=== PATIENT | female | born 1945 | race African-American/Black ===

== ENCOUNTER 2017-05-10 07:49 | Outpatient (CLI) | payer MEDICARE ==
[2017-05-10] MEDS ORDERED: Iopamidol 370 76% 100 ML VIAL ONE (15:45)
== END 2017-05-10 07:50 | disposition home or self-care (01) ==
LOC: BICCT 07:49
PROVIDERS: ATTEND Internal Medicine Gastroenterology
DX: K52.9 Noninfective gastroenteritis and colitis, unspecified (principal)
CPT/HCPCS: 74177

== ENCOUNTER 2017-05-27 08:47 | Outpatient (CLI) | payer MEDICARE | END 2017-05-27 08:48 | disposition home or self-care (01) | LOC: BICMAMMO 08:47 | PROVIDERS: ATTEND Family Medicine | DX: Z12.31 Encounter for screening mammogram for malignant neoplasm of breast (principal) | CPT/HCPCS: 77063; 77067 ==

== ENCOUNTER 2017-10-14 09:20 | Inpatient (IN) | payer MEDICARE ==
[2017-10-14 10:22] LABS: CKMB 0.6 ng/mL (0-6.6); Troponin I Less than 0.010 ng/mL (< 0.028)
[2017-10-14 10:24] LABS: Hemoglobin 11.9 g/dL (12.0-16.0); Mean Corpuscular HGB CONC 34.1 g/dL (32.0-36.0); Mean Corpuscular Hemoglobin 32.3 pg (27.0-31.0); Mean Corpuscular Volume 94.8 fL (78.0-98.0); Mean Platelet Volume 7.6 fL (7.4-10.4); Platelet Count 221 thou/uL (130-400); RBC Distribution Width 12.6 % (11.5-14.5); Red Blood Cell (RBC) Count 3.67 mill/uL (4.20-5.40); White Blood Cell (WBC) Count 7.1 thou/uL (4.8-10.8)
[2017-10-14 10:25] LABS: ALT (SGPT) 15 U/L (8-55); AST (SGOT) 21 U/L (5-34); Alkaline Phosphatase 60 U/L (40-150); Anion Gap 12 mmol/L (10-20); BUN (Urea Nitrogen) 15 mg/dL (9.8-20.1); Bilirubin, Total 0.6 mg/dL (0.2-1.2); Calc. Creatinine Clearance 0 mL/min (70-130); Calcium 9.6 mg/dL (7.8-10.44); Carbon Dioxide 25 mmol/L (23-31); Chloride 107 mmol/L (98-107); Estimated GFR-MDRD 72; Glucose 101 mg/dL (83-110); Magnesium 2.2 mg/dL (1.6-2.6); Potassium 4.4 mmol/L (3.5-5.1); Sodium 140 mmol/L (136-145)
[2017-10-14 10:28] LABS: Bilirubin Negative (Negative); Blood, Urine Negative (Negative); Clarity Clear (Clear); Glucose, Urine (Dipstick) Negative (Negative); Leukocyte Negative (Negative); Nitrite Negative (Negative); Protein, Urine (Dipstick) Negative (Neg-Trace); Urobilinogen 0.2 mg/dL (0.2-1.0); pH, Urine 5.5 (5.0-9.0)
[2017-10-14 10:40] LABS: Band 3 % (5-11); Eosinophils 5 % (0-10); Lymphocytes 33 % (21-51); MDiff Complete? YES; Monocytes 12 % (0-10); Neutrophil 47 % (42-75); PLT Morphology Comment Appears Adequate; Polychromasia SLIGHT = 2-3 cells (100X) (0-2/hpf); Stomatocytes SLIGHT = 2-5 cells (100X) (0-1/hpf)
--- NOTE | 2017-10-14 10:58 | RAD ---
CHEST 1 VIEW: HISTORY: Weakness. Dyspnea. COMPARISON: 02/19/15. FINDINGS: Cardiac silhouette is magnified and enlarged. Pulmonary vasculature is slightly engorged. Mediastin um is midline with aortic calcification. No lobar consolidation or evidence of pneumothorax. IMPRESSION: Cardiomegaly with mild pulmonary vascular congestion. POS: [facility]
--- NOTE | 2017-10-14 11:06 | CT ---
NONCONTRAST CT HEAD: DATE: 10/14/17. HISTORY: Headache. One-week history of increasing weakness and lightheadedness, worse with standing. COMPARISON: 02/19/15. FINDINGS: Previously noted remote lacunar infarction predominantly involving the anterior limb left internal ca psule is again seen. Punctate focus of decreased attenuation in the right lentiform nucleus is likel y attributable to a tiny remote lacunar infarction as well. There is no evidence of an acute cortica l infarction, hemorrhage, mass effect, or midline shift. The ventricular system is normal in size, s hape, and position. No other interval change. IMPRESSION: 1. No acute intracranial abnormality is demonstrated. 2. Remote lacunar infarctions in each basal ganglia. POS: [facility]
[2017-10-14 13:35] LABS: Troponin I Less than 0.010 ng/mL (< 0.028)
[2017-10-14 13:51] VITALS: BMI 33.8
[2017-10-14] MEDS ORDERED: cloNIDine 0.1 MG TAB PO PRN (16:30)
[2017-10-14] MEDS ORDERED: hydrALAZINE 20 MG/ML VIAL SLOW IVP PRN (16:30)
[2017-10-14] MEDS ORDERED: Ondansetron ODT 4 MG TAB PO PRN (16:30)
[2017-10-14] MEDS ORDERED: Ondansetron HCl/PF 4 MG/2 ML Vial IVP PRN (16:30)
[2017-10-14 16:53] LABS: Troponin I Less than 0.010 ng/mL (< 0.028)
[2017-10-14] MEDS: Acetaminophen 500 MG TAB PO PRN (18:39)
[2017-10-14] MEDS: Sodium Chloride 0.9% 1,000 ML IV SCH (18:40)
--- NOTE | 2017-10-14 18:52 | ULT ---
ULTRASOUND DOPPLER DUPLEX CAROTID: 10/14/17 HISTORY: 71-year-old female with dizziness. TECHNIQUE: Tobar scale, color flow, and spectral analysis, of major arteries of the neck. FINDINGS: There is mild tortuosity and intimal thickening of the bilateral common carotid arteries and internal carotid arteries. Tiny focal calcified plaque is present at the right carotid bulb, at the right int ernal carotid artery origin. No plaque is visualized in the left carotid bulb. Highest peak systolic velocities in the internal carotid arteries are 80 cm/s on the right, and also 80 cm/s on the left. ICA/CCA ratios are 0.9 on the right and 1.0 on the left. Vertebral artery flow is antegrade bilaterally. IMPRESSION: 1. Minimal atherosclerotic plaque at the right carotid bulb. 2. Otherwise negative. 3. No hemodynamically significant stenosis. POS: [facility]
[2017-10-14] MEDS: Famotidine 20 MG TAB PO SCH (20:36)
[2017-10-14] MEDS: Lisinopril 20 MG TAB PO SCH (20:36)
[2017-10-14] MEDS: Amlodipine 10 MG TAB PO SCH (20:37)
[2017-10-14] MEDS: Atorvastatin Calcium 10 MG TAB PO SCH (20:37)
[2017-10-14] MEDS: hydrALAZINE 25 MG TAB PO SCH (20:37)
[2017-10-14] MEDS: Ipratropium Bromide 0.03% Nasal Inhaler 30 ml Bottle EA NARE SCH (20:37)
--- NOTE | 2017-10-15 00:08 | HP ---
DATE OF ADMISSION: 10/14/2017 PRIMARY CARE PHYSICIAN: Nina Bell M.D. CHIEF COMPLAINT: Lightheadedness and dizziness. HISTORY OF PRESENT ILLNESS: This is a 71-year-old -[place] female who presents to [facility] Emergency Department with approximately 48-hour history of increasing weaknes s, lightheadedness, and dizziness. Patient states that approximately 48 hours prior to this evaluati on, she was walking through a parking lot looking up at her granddaughter when she misstepped hitting a speed bump with her foot, falling to the ground, striking her right knee. Patient denied loss of consciousness or blacking out. Patient noted bruising of the knee and scraped, but otherwise felt ok ay. The patient states she has felt generally weak over the last 48 hours with increasing need for s leep and some dizziness. Patient states she got out of bed rapidly to go to the restroom when she no ticed the dizziness and lightheadedness. Patient denied any change of vision, fever, chills, chest p ressure, shortness of breath, travel history or unilateral weakness. Patient denied any long distanc e travel, increased swelling of the lower extremities other than bruising of the right knee. Patient admits to some nonspecific headache in the occipital region with some radiation to the eyebrows. Pa tient also with some increased stress, worrying about her family members, and social situation. Micaela ent denied any specific change to her medication regimen, recent vaccinations, fever, chills, or sick contacts. In the emergency room, patient underwent general evaluation including CT of the brain jesse wing remote lacunar infarcts in each basil ganglia. No acute process was identified. Metabolic scre ening was essentially unremarkable and patient was transferred to the observation unit for further ev aluation. Patient was noted with sinus bradycardia; however, this is a chronic condition according t o the patient. PAST MEDICAL HISTORY: 1. Sinus bradycardia. 2. Hypertension. 3. History of remote lacunar infarcts in the basal ganglia. 4. Seasonal allergies. 5. Anxiety disorder. 6. History of hypertensive crisis in 2014. 7. History of hepatitis C, status post interferon therapy. 8. Obesity. 9. Hyperlipidemia. PAST SURGICAL HISTORY: 1. Status post cholecystectomy. 2. Status post tonsillectomy. CURRENT MEDICATIONS: 1. Amlodipine 10 mg one tab p.o. daily. 2. Enteric-coated aspirin 81 mg one tab p.o. daily. 3. Lipitor 10 mg p.o. daily. 4. Vitamin B complex one tablet p.o. daily. 5. Coreg 12.5 mg p.o. b.i.d. 6. Zyrtec 10 mg p.o. daily. 7. Vitamin D3 of 1000 units p.o. daily. 8. Lasix 40 mg p.o. daily. 9. Apresoline 50 mg p.o. b.i.d. 10. Lisinopril 20 mg p.o. b.i.d. 11. Lorazepam 0.5 mg to 1 mg p.o. q.4 hours p.r.n. anxiety. 12. Multivitamin one tab p.o. daily. 13. [place] 3 fatty acids one tablet p.o. daily. 14. Omeprazole 20 mg one tab p.o. daily. ALLERGIES: CODEINE. FAMILY HISTORY: Positive for hypertension. SOCIAL HISTORY: Patient resides in [place], [place]. Retired. Accompanied by her son and fam elisa members in the hospital. Functional of all activities of daily living. No current alcohol, toba insurance account assistant, or illicit drug use. REVIEW OF SYSTEMS: The following complete review of systems was otherwise negative, except as stated per HPI: Constitutional: Weight loss or gain, ability to conduct usual activities. Skin: Rash, i tching. Eyes: Double vision, pain. ENT/Mouth: Nose bleeding, neck stiffness, pain, tenderness. C ardiovascular: Palpitations, dyspnea on exertion, orthopnea. Respiratory: Shortness of breath, whe ezing, cough, hemoptysis, fever, or night sweats. Gastrointestinal: Poor appetite, abdominal pain, heartburn, nausea, vomiting, constipation, or diarrhea. Genitourinary: Urgency, frequency, dysuria, nocturia. Musculoskeletal: Pain, swelling. Neurologic/Psychiatric: Anxiety, depression. Allergy /Immunologic: Skin rash, bleeding tendency. PHYSICAL EXAMINATION: VITAL SIGNS: Currently, blood pressure 173/75, pulse 49, respiratory rate 16, temperature 97.8 degre es Fahrenheit, O2 saturation 95% on room air. GENERAL APPEARANCE: This is a 71-year-old -[place] female, alert and oriented x3, pleasant, conversant, in no acute distress. HEENT: Pupils are equal, round, and reactive to light and accommodation. Extraocular muscles are in tact. No scleral icterus, no conjunctival injection. No nystagmus noted. Nares patent. OP is maty r. Teeth in good repair. NECK: Supple, no cervical adenopathy, no thyromegaly, no carotid bruits, no JVD appreciated. Cervic al spine with full active and passive range of motion. No meningeal signs appreciated. CHEST: Lungs are clear to auscultation bilaterally. CARDIOVASCULAR: S1, S2 without noted murmur, rub, or gallop. ABDOMEN: Obese, soft, nontender, nondistended. Bowel sounds are positive in all four quadrants. Th ere is no hepatosplenomegaly, no abdominal bruits, no rebound or guarding appreciated. EXTREMITIES: Warm and dry with fair turgor. No clubbing, cyanosis, or asymmetric edema. Pulses pal pable distally at the dorsalis pedis, posterior tibial, and popliteal arteries bilaterally. Capillar y refill less than 2 seconds. NEUROLOGIC: Cranial nerves II-XII are grossly intact. No nystagmus noted. No focal findings. SKIN: Right patellar region with mild erythema and abrasion approximately 2 cm in diameter. PERTINENT LABORATORY DATA AND X-RAY FINDINGS: Complete metabolic profile within normal limits. BNP 142, previously noted 126 on 02/19/2015. Troponin I negative x2. CBC showed a white blood cell coun t of 7.1, hemoglobin 12, hematocrit 35, platelet count 221 with 47% neutrophils. Urinalysis negative on 10/14/2017. Portable chest x-ray dated 10/14/2017 showed cardiomegaly with vascular prominence. CT of the brain without contrast dated 10/14/2017 showed no acute intracranial process. Remote lacu nell infarcts in each basil ganglia. EKG dated 10/14/2017 by my interpretation shows sinus bradycardi a with heart rates in the 40s-50s. Attenuated R waves noted in the precordial leads. Normal axis. No acute ST-T wave changes appreciated. ASSESSMENT AND PLAN: 1. Vertigo. Patient will be observed on the telemetry unit. Exact etiology unclear. We will initi ate intravenous fluids with normal saline at 75 mL per hour. Check orthostatic vital signs q.4 x2. Continue telemetry monitoring for potential cardiac component. Continue serial blood pressure monito ring. Consider trial of meclizine. Check carotid sonogram to rule out focal stenosis. 2. Sinus bradycardia. Review of the electronic medical record reveals history of sinus bradycardia greater than 3 years prior to this evaluation. We will hold Coreg. Continue amlodipine. We will co ntinue telemetry monitoring and correlate with potential symptoms. 3. Status post mechanical fall. Stable currently. Obtain PT evaluation for general functional asse ssment. 4. Hypertension. Resume home antihypertensive regimen and hold Coreg x24 hours. Hydralazine and cl onidine p.r.n. systolic greater than or equal to 170s. 5. History of lacunar cerebrovascular accident in the thalamic region. No current evidence to sugge st an acute central neurologic process. Continue supportive management. Aspirin 81 mg daily. Talisha nue Lipitor 10 mg p.o. daily. 6. Prophylaxis. Sequential compression devices while in bed. Pepcid 20 mg p.o. b.i.d. PT evaluati on for general functional assessment. 7. Code status is FULL. Surrogate medical decision maker is patient's son.
[2017-10-15 05:14] LABS: Anion Gap 11 mmol/L (10-20); BUN (Urea Nitrogen) 15 mg/dL (9.8-20.1); Calc. Creatinine Clearance 89 mL/min (70-130); Calcium 9.4 mg/dL (7.8-10.44); Carbon Dioxide 26 mmol/L (23-31); Chloride 106 mmol/L (98-107); Estimated GFR-MDRD 78; Glucose 110 mg/dL (83-110); Sodium 139 mmol/L (136-145)
[2017-10-15] MEDS: Sodium Chloride 0.9% 1,000 ML IV SCH (05:39)
[2017-10-15 06:48] LABS: Hemoglobin 11.6 g/dL (12.0-16.0); Mean Corpuscular Hemoglobin 32.8 pg (27.0-31.0); Mean Corpuscular Volume 99.4 fL (78.0-98.0); Red Blood Cell (RBC) Count 3.54 mill/uL (4.20-5.40); White Blood Cell (WBC) Count 7.2 thou/uL (4.8-10.8)
[2017-10-15 06:49] LABS: Eosinophils 4 % (0-10); Lymphocytes 41 % (21-51); MDiff Complete? YES; Mean Platelet Volume 7.5 fL (7.4-10.4); Monocytes 4 % (0-10); Neutrophil 51 % (42-75); Platelet Count 250 thou/uL (130-400); RBC Distribution Width 13.1 % (11.5-14.5)
[2017-10-15] MEDS: Ipratropium Bromide 0.03% Nasal Inhaler 30 ml Bottle EA NARE SCH ×2 (09:00→21:17)
[2017-10-15] MEDS: Famotidine 20 MG TAB PO SCH ×2 (09:01→21:17)
[2017-10-15] MEDS: Stress 600 With Zinc 1 TAB PO SCH (09:03)
[2017-10-15] MEDS: Acetaminophen 500 MG TAB PO PRN ×2 (09:03→19:31)
[2017-10-15] MEDS: Lisinopril 20 MG TAB PO SCH ×2 (09:04→21:17)
[2017-10-15] MEDS: hydrALAZINE 25 MG TAB PO SCH ×2 (09:04→21:17)
[2017-10-15] MEDS: Loratadine 10 MG TAB PO SCH (09:05)
[2017-10-15] MEDS: Furosemide 40 MG TAB PO SCH (09:05)
[2017-10-15] MEDS: Fish Oil 1,000 MG CAP PO SCH (09:06)
[2017-10-15] MEDS ORDERED: Meclizine HCl 25 MG TAB PO SCH (15:30)
--- NOTE | 2017-10-15 16:06 | PDOC.PN ---
- Subjective Encounter Start Date: 10/15/17 Encounter Start Time: 14:15 Subjective: f/u for vertigo/dizziness. Still with some dizziness when moving around. No -: N/V. No CP, SOB. - Objective MAR Reviewed: Yes Vital Signs & Weight: Vital Signs (12 hours) Temp Pulse Resp BP Pulse Ox 10/15/17 15:19 97.6 F 51 L 22 H 177/81 H 95 I&O: 10/14/17 10/15/17 10/16/17 06:59 06:59 06:59 Intake Total 750 Balance 750 Result Diagrams: 10/15/17 04:36 10/15/17 04:36 Radiology Reviewed by me: Yes (CT Brain - no acute process) EKG Reviewed by me: Yes (Tele - Sinus lion in 50's) Phys Exam - Physical Examination Constitutional: NAD HEENT: PERRLA, sclera anicteric, oral pharynx no lesions Neck: no nodes, no JVD, supple, full ROM Respiratory: no wheezing, no rales, no rhonchi, clear to auscultation bilateral S1, S2 Cardiovascular: RRR, no significant murmur, no rub, gallop Gastrointestinal: soft, non-tender, no distention, positive bowel sounds Musculoskeletal: no edema, pulses present Neurological: non-focal, normal sensation, moves all 4 limbs Psychiatric: normal affect, A&O x 3 Skin: no rash, normal turgor, cap refill <2 seconds Dx/Plan (1) Vertigo Code(s): R42 - DIZZINESS AND GIDDINESS Status: Acute Comment: Trial Meclizine, ? relationship with sinus bradycardia, continue supportive mgmt, fall risk precautions (2) Sinus bradycardia Code(s): R00.1 - BRADYCARDIA, UNSPECIFIED Status: Chronic Comment: ? symptomatic bradycardia, hold Coreg, likely will need outpt event monitor (3) Fall Code(s): W19.XXXA - UNSPECIFIED FALL, INITIAL ENCOUNTER Status: Acute Comment: Mechanical fall after tripping, no LOC or head injury (4) Hypertension Code(s): I10 - ESSENTIAL (PRIMARY) HYPERTENSION Status: Chronic Qualifiers: Hypertension type: essential hypertension Qualified Code(s): I10 - Essential (primary) hypertension Comment: Labile, continue serial BP monitoring, Coreg held due to concern for symptomatic bradycardia - Plan plan discussed w/ family, PT/OT, out of bed/ambulate, DVT proph w/SCDs Stable overall -: Start Meclizine 25mg po q8h -: Hold Coreg -: Saline lock IVF's -: OOB/ambulate * Consult Cardiology regarding bradycardia * Likely home in 24h with event monitor
[2017-10-15] MEDS: Amlodipine 10 MG TAB PO SCH (21:16)
[2017-10-15] MEDS: Atorvastatin Calcium 10 MG TAB PO SCH (21:17)
[2017-10-15] MEDS: Meclizine HCl 25 MG TAB PO SCH (21:18)
[2017-10-16] MEDS: Meclizine HCl 25 MG TAB PO SCH (06:05)
[2017-10-16] MEDS: Famotidine 20 MG TAB PO SCH (08:16)
[2017-10-16] MEDS: Lisinopril 20 MG TAB PO SCH (08:16)
[2017-10-16] MEDS: Loratadine 10 MG TAB PO SCH (08:17)
[2017-10-16] MEDS: Stress 600 With Zinc 1 TAB PO SCH (08:17)
[2017-10-16] MEDS: hydrALAZINE 25 MG TAB PO SCH (08:17)
[2017-10-16] MEDS: Furosemide 40 MG TAB PO SCH (08:17)
[2017-10-16] MEDS: Fish Oil 1,000 MG CAP PO SCH (08:17)
[2017-10-16] MEDS: Ipratropium Bromide 0.03% Nasal Inhaler 30 ml Bottle EA NARE SCH (08:18)
[2017-10-16 08:19] VITALS: BP 156/68; TEMP 98.3
--- NOTE | 2017-10-16 10:13 | CON ---
DATE OF CONSULTATION: 10/15/2017 REASON FOR CONSULTATION: Bradycardia. REFERRING PROVIDER: Dr. Lamb. HISTORY OF PRESENT ILLNESS: Ms. Antoine is a very pleasant 71-year-old woman who was previously seen a nd evaluated by Dr. Rabia Rush. She recently presented with dizziness and lightheadedness. This occurred while getting up from a lying position. No chest pain or pressure noted. No shortness of b reath. No syncope or presyncope. She states she has been on Coreg at 12.5 mg 1 p.o. b.i.d. over the last several years. No other recent changes in medications. Heart rate while being evaluated was i n the upper 40s-50s. No fever, chills or other associated symptoms present. PAST MEDICAL HISTORY: Previous stroke, hypertension, hepatitis C, obesity, hyperlipidemia. PAST SURGICAL HISTORY: Cholecystectomy, tonsillectomy. HOME MEDICATIONS: Include aspirin, amlodipine, Lipitor, vitamin B, Coreg 12.5 b.i.d., Zyrtec, vitami n D3, Lasix, alprazolam, lisinopril, multivitamin, omega 3 fatty acid, omeprazole. ALLERGIES: CODEINE. SOCIAL HISTORY: No current tobacco or alcohol use. REVIEW OF SYSTEMS: Ten point review of systems reviewed and as above, otherwise negative. PHYSICAL EXAMINATION: GENERAL: Patient is a pleasant female who is in no acute distress. The patient appears her stated a ge. VITAL SIGNS: Blood pressure 150/60, pulse upper 40s to 50s, respirations 20. NEUROLOGIC: The patient is alert and oriented times 3 with no focal neurologic deficits. HEENT: Sclerae without icterus. Mouth has moist mucous membranes with normal pallor. NECK: No JVD. Carotid upstroke brisk. No bruits bilaterally. LUNGS: Clear to auscultation with unlabored respirations. BACK: No scoliosis or kyphosis. CARDIAC: Regular rate and rhythm with normal S1 and S2. No S3 or S4 noted. No significant rubs, mu rmurs, thrills, or gallops noted throughout the precordium. PMI is not displaced. There is no javier ternal heave. ABDOMEN: Soft, nontender, nondistended. No peritoneal signs present. No hepatosplenomegaly. No ab normal striae. EXTREMITIES: 2+ femoral and 2+ dorsalis pedis pulses. No cyanosis, clubbing, or edema. SKIN: No gross abnormalities. PERTINENT LABORATORY DATA AND IMAGING: Hemoglobin 11.6, creatinine 0.86. Troponin negative. EKG sh ows sinus bradycardia. IMPRESSION: 1. Dizziness. 2. Hypertension. RECOMMENDATIONS: Symptoms likely related to beta ryan therapy. We would recommend stopping her b eta ryan therapy. She states her symptoms have improved. From my standpoint, could likely be dis continued today. She states she has no social support at home and lives alone. Therefore, we will k eep overnight and plan on sending her home in a.m. We will recommend a 3-week event recorder and ree chavez follow up with Dr. Rush in the next 2-3 weeks.
--- NOTE | 2017-10-16 20:39 | DIS ---
DATE OF ADMISSION: 10/14/2017 DATE OF DISCHARGE: 10/16/2017 DISCHARGE DIAGNOSES: 1. Symptomatic bradycardia secondary to Coreg. 2. Vertigo secondary to #1, improved. 3. Hypertension, stable. 4. Status post mechanical fall. 5. Hyperlipidemia. CONSULTATION: Dr. Mahan with Cardiology Service. PERTINENT LABORATORY AND X-RAY FINDINGS: Complete metabolic profile within normal limits. Troponin I negative x3. BNP 142. CBC showed a hemoglobin ranged between 11.6-11.9, hematocrit 35, MCV ranged between 95-99. Urinalysis negative. Portable chest x-ray dated 10/14/2017 showed cardiomegaly with mild vascular prominence. CT of the brain without contrast dated 10/14/2017 showed no acute intracr anial process. Remote lacunar infarcts noted in each basal ganglia. Carotid Doppler study dated showed minimal atherosclerotic plaque at the right carotid bulb. No hemodynamically signific ant stenosis. HOSPITAL COURSE: The patient was admitted to the telemetry unit after initially presenting with pers istent dizziness, lightheadedness, and vertiginous symptoms. The patient underwent extensive evaluat ion including neuro imaging showing evidence of old lacunar infarcts in the bilateral basal ganglia. The patient also underwent metabolic screening which was essentially unremarkable. Telemetry monito ring did show evidence of bradycardia with heart rates in the 40s to 50s concerning for symptomatic b radycardia. The patient was held on her outpatient regimen of Coreg and evaluated by the Cardiology Service. Due to patient's symptomatology, the patient was recommended for a cardiac event monitor fo r approximately 3 weeks after discharge. Current recommendations are to discontinue Coreg and contin ue cardiac event monitor with outpatient followup with Cardiology Service. Overall, the patient did remain clinically stable during the hospital course, tolerating regular oral intake, ambulating witho ut assistance or difficulty and voiding appropriately. Pelvic exam of the patient at the time of dis charge and discussed followup instructions, at which point the patient verbalized understanding and a greement. Overall, the patient clinically stable and ready for discharge on 10/16/2017. DISCHARGE MEDICATIONS: 1. Norvasc 10 mg 1 tab p.o. at bedtime. 2. Enteric-coated aspirin 81 mg p.o. daily. 3. Lipitor 10 mg p.o. at bedtime. 4. Vitamin B complex 1 tablet p.o. daily. 5. Zyrtec 10 mg p.o. daily. 6. Vitamin D3 1000 units p.o. daily. 7. Lasix 40 mg p.o. q.a.m. 8. Hydralazine increased to 75 mg p.o. b.i.d. 9. Ipratropium bromide 1 spray nasally b.i.d. 10. Lisinopril 20 mg p.o. b.i.d. 11. Lorazepam 0.5 mg half a tab to 1 tab p.o. q.4 hours p.r.n. 12. [employer] tab 1 tablet p.o. daily. 13. [place]-3 fatty acids 1 tablet p.o. daily. 14. Omeprazole 20 mg p.o. daily. FOLLOWUP: The patient may follow up with her primary care provider, Dr. Nina Bell, within 7 days of discharge. The patient will follow up with Dr. Rabia Rush 2-3 weeks after discharge to re view cardiac event monitor. CONDITION ON DISCHARGE: Stable. ACTIVITY: ad giles. SPECIAL INSTRUCTIONS: Cardiac event Monitor will be mailed to the patient's home within 3-4 days aft er discharge. DIET: Heart healthy. CODE STATUS: FULL. DISPOSITION: Home on 10/16/2017.
== END 2017-10-16 12:57 | disposition home or self-care (01) | DRG 149 ==
LOC: SCSER 09:20 → 2SW 11:11 → OBSVTOIN 10-15 15:06
PROVIDERS: ADMIT Family Medicine; ATTEND Family Medicine
DX: R42 Dizziness and giddiness (principal); R00.1 Bradycardia, unspecified; T44.7X5A Adverse effect of beta-adrenoreceptor antagonists, initial encounter; I10 Essential (primary) hypertension; E78.5 Hyperlipidemia, unspecified; J30.2 Other seasonal allergic rhinitis; F41.9 Anxiety disorder, unspecified; E66.9 Obesity, unspecified; Z68.33 Body mass index [BMI] 33.0-33.9, adult; Z86.73 Personal history of transient ischemic attack (TIA), and cerebral infarction without residual deficits; Z86.19 Personal history of other infectious and parasitic diseases; W19.XXXA Unspecified fall, initial encounter; Y92.009 Unspecified place in unspecified non-institutional (private) residence as the place of occurrence of the external cause
CPT/HCPCS: 36415; 70450; 71045; 80048; 80053; 81003; 82553; 83735; 83880; 84484; 85007; 85025; 85027; 93005; 93880; G8978-GP-CL; G8979-GP-CL; G8980-GP-CL; Q0162

== ENCOUNTER 2017-11-10 16:04 | Inpatient (IN) | payer MEDICARE ==
[2017-11-10] MEDS ORDERED: Nitroglycerin 2% Ointment 1 INCH/1 GM Packet ONE (16:19)
[2017-11-10] MEDS ORDERED: Lorazepam 2 MG/ML VIAL ONE (16:44)
[2017-11-10 16:47] LABS: Band 1 % (5-11); Eosinophils 2 % (0-10); Hemoglobin 11.6 g/dL (12.0-16.0); Lymphocytes 18 % (21-51); MDiff Complete? YES; Mean Corpuscular HGB CONC 32.8 g/dL (32.0-36.0); Mean Corpuscular Hemoglobin 31.1 pg (27.0-31.0); Mean Platelet Volume 7.4 fL (7.4-10.4); Monocytes 14 % (0-10); Neutrophil 64 % (42-75); PLT Morphology Comment Appears Adequate; Platelet Count 277 thou/uL (130-400); RBC Distribution Width 12.7 % (11.5-14.5); Red Blood Cell (RBC) Count 3.74 mill/uL (4.20-5.40); White Blood Cell (WBC) Count 11.4 thou/uL (4.8-10.8)
[2017-11-10 16:49] LABS: ALT (SGPT) 16 U/L (8-55); AST (SGOT) 22 U/L (5-34); Albumin 4.2 g/dL (3.4-4.8); Alkaline Phosphatase 63 U/L (40-150); Anion Gap 15 mmol/L (10-20); BUN (Urea Nitrogen) 17 mg/dL (9.8-20.1); Bilirubin, Total 0.3 mg/dL (0.2-1.2); Calc. Creatinine Clearance 0 mL/min (70-130); Calcium 9.8 mg/dL (7.8-10.44); Carbon Dioxide 24 mmol/L (23-31); Chloride 105 mmol/L (98-107); Estimated GFR-MDRD 60; Globulin 4.2 g/dL (2.4-3.5); Glucose 113 mg/dL (83-110); Protein, Total 8.4 g/dL (6.0-8.3); Sodium 140 mmol/L (136-145)
[2017-11-10 16:52] LABS: CKMB 0.7 ng/mL (0-6.6); Troponin I 0.016 ng/mL (< 0.028)
--- NOTE | 2017-11-10 16:57 | RAD ---
AP VIEW CHEST 11/10/17 HISTORY: Chest pain. AP view chest obtained on 11/10/17. COMPARISON: Comparison made to previous exam of 10/14/17. AP view chest demonstrates mild cardiomegaly. Pulmonary vascular congestion seen. No evidence of effu sions, pneumonia, or pneumothorax seen. IMPRESSION: Cardiomegaly and pulmonary vascular congestion. POS: [facility]
[2017-11-10] MEDS ORDERED: Morphine 4 MG/ML Carpuject ONE (17:09)
[2017-11-10] MEDS ORDERED: Fentanyl 100 MCG/2 ML VIAL ONE ×2 (17:14→23:29)
[2017-11-10] MEDS ORDERED: Fentanyl 100 MCG/2 ML VIAL SLOW IVP PRN ×2 (18:40→22:28)
[2017-11-10] MEDS: Nitroglycerin 0.4 MG TAB (25 Tab Bottle) ONE ×2 (18:48→18:58)
[2017-11-10 19:06] VITALS: BMI 34.7
[2017-11-10 20:24] LABS: Troponin I Less than 0.010 ng/mL (< 0.028)
[2017-11-10 22:47] LABS: Troponin I Less than 0.010 ng/mL (< 0.028)
[2017-11-10] MEDS ORDERED: Nitroglycerin 0.4 MG TAB (25 Tab Bottle) SL PRN (22:49)
[2017-11-10] MEDS ORDERED: Lidocaine 1% (PF) 30 ML VIAL ONE (23:06)
[2017-11-10] MEDS ORDERED: Midazolam HCl 2 mg/2 ml Vial ONE (23:29)
--- NOTE | 2017-11-10 23:41 | CON ---
DATE OF CONSULTATION: 11/10/2017 REASON FOR CONSULTATION: Chest pain. PRIMARY GAUGE AND WEIGH MACHINE OPERATOR: Dr. Rabia Rush. HISTORY OF PRESENT ILLNESS: Ms. Antoine is a pleasant 72-year-old -[place] female who comes to the hospital for chest pain. She had 2-1/2 hours of left shoulder pain radiated to the left neck an d left upper chest, accompanied with mild shortness of breath. Denies any nausea, vomiting. She rec ently was in the hospital about a month ago for bradycardia. She was scheduled to see Dr. Rush in the office next week for stress and then an echo. Currently, she was admitted to the [facility] as her troponin was unremarkable x3. She had a normal EKG. She continued to have chest pain and a repeat EKG showed inferior ST elevations, so Cardiology is being consulted emergently for this. On my evaluation, Mrs. Antoine continues to have chest pain, so the electrical laboratory technician team has been called in for f urther evaluation. PAST MEDICAL HISTORY: 1. Hepatitis C. 2. History of mild coronary artery disease and a heart catheterization [place] [address] Rush. She h ad 10-20% RCA lesion. 3. Hypertension. 4. History of lacunar infarcts in the basal ganglia. 5. Seasonal allergies. 6. Anxiety disorder. 7. Obesity. 8. Hyperlipidemia. PAST SURGICAL HISTORY: 1. Cholecystectomy. 2. Tonsillectomy. 3. Heart catheterization as above. OUTPATIENT MEDICATIONS: 1. Amlodipine 10 mg a day. 2. Aspirin 81 a day. 3. Lipitor 10 a day. 4. Vitamin B. 5. Coreg. 6. Zyrtec. 7. Vitamin D. 8. Lasix. 9. Apresoline 50 mg p.o. b.i.d. 10. Lisinopril 20 mg p.o. b.i.d. 11. Lorazepam. 12. Multivitamin. 13. [place] 3 fish oil. 14. Omeprazole 20 mg at bedtime. ALLERGIES: CODEINE. FAMILY HISTORY: Hypertension, heart disease. SOCIAL HISTORY: No alcohol, tobacco or drugs. REVIEW OF SYSTEMS: A 12-point review of systems was done and is all negative unless stated in the hi story of present illness. PHYSICAL EXAMINATION: VITAL SIGNS: Temperature 99.3, pulse 75, respiratory rate 24, satting 96% on 3 liters nasal cannula, blood pressure 159/74. GENERAL: Awake, alert, oriented x3, in no distress. HEENT: Normocephalic, atraumatic. NECK: Supple. LUNGS: Clear. CARDIOVASCULAR: S1, S2, no S3, S4, no murmurs. ABDOMEN: Soft. Positive bowel sounds. EXTREMITIES: Trace edema. SKIN: Warm and dry. LABORATORY WORK: Reviewed. Troponin is negative x3, last one was drawn at 2200 hours. Her pain sta rted at 2245 hours. Creatinine is normal. GFR of 60. CBC with a mildly elevated white count of 11. 4, hemoglobin 11.6, platelet count 277. EKG was reviewed on admission, normal sinus rhythm, no ischemic changes. A repeat EKG while she is h aving pain shows inferior ST elevations. ASSESSMENT AND PLAN: Inferior ST elevation myocardial infarction. We will take her to the catheteri zation lab for further evaluation. Further recommendations per results of coronary angiogram. I spo ke with her briefly about the risks and benefits of the procedure, risks included, but not limited to stroke, [place], , bleeding and need for blood transfusion, limb loss, organ loss, renal dysfunction from contrast administration and allergic reactions. The patient verbalized understanding of this a nd agrees to proceed. Whole family is in the room at the time of my evaluation. We will follow.
[2017-11-10] MEDS ORDERED: Sodium Chloride 0.9% 1,000 ML IV SCH (23:45)
[2017-11-10] MEDS ORDERED: Sodium Chloride 0.9% 200 ML IV PRN (23:59)
[2017-11-10] MEDS ORDERED: Ketorolac Tromethamine 30 MG/ML VIAL IVP SCH (23:59)
[2017-11-11] MEDS ORDERED: Ondansetron HCl/PF 4 MG/2 ML Vial IVP PRN (03:33)
[2017-11-11] MEDS ORDERED: Ketorolac Tromethamine 30 MG/ML VIAL IVP PRN (06:00)
[2017-11-11 06:49] LABS: Cardiac Risk 2.2 (Less than 4.5)
[2017-11-11] MEDS ORDERED: Ondansetron ODT 4 MG TAB PO PRN (07:05)
[2017-11-11] MEDS ORDERED: Bisacodyl 10 MG SUPP PR PRN (07:05)
[2017-11-11] MEDS ORDERED: Diabetic Tussin 200 MG/10 ML UDCUP PO PRN (07:05)
[2017-11-11] MEDS ORDERED: Lorazepam 1 MG TAB PO PRN (07:05)
[2017-11-11] MEDS ORDERED: Labetalol HCl 100 MG/20 ML VIAL SLOW IVP PRN (07:05)
[2017-11-11] MEDS ORDERED: Sodium Chloride 0.65% Nasal 44 ML BOT EA NARE PRN (07:05)
[2017-11-11] MEDS ORDERED: Loperamide HCl 2 MG CAP PO PRN (07:05)
[2017-11-11] MEDS ORDERED: Chloraseptic Spray 180 ml Bottle PO PRN (07:05)
[2017-11-11] MEDS ORDERED: hydrALAZINE 20 MG/ML VIAL SLOW IVP PRN (07:05)
[2017-11-11] MEDS ORDERED: Eucerin (Mineral Oil/Petrolatum,White) 30 gm Jar TOP PRN (07:05)
[2017-11-11] MEDS ORDERED: Senokot 8.6 MG TAB PO PRN (07:05)
[2017-11-11] MEDS ORDERED: Loratadine 10 MG TAB PO PRN (07:05)
[2017-11-11] MEDS ORDERED: Zolpidem Tartrate 5 MG TAB PO PRN (07:05)
[2017-11-11] MEDS ORDERED: Artificial Tears 18 DROP/0.9 ML EA EYE PRN (07:05)
[2017-11-11] MEDS ORDERED: Metoclopramide HCl 10 MG/2 ML VIAL IVP PRN (07:05)
[2017-11-11] MEDS ORDERED: Mag-Al 1200 mg/1200 mg/30 ML UDCUP PO PRN (07:05)
[2017-11-11] MEDS ORDERED: Milk Of Magnesia 30 ML UDCUP PO PRN (07:05)
[2017-11-11] MEDS ORDERED: Calcium Carbonate 500 MG ChewTAB PO PRN (07:05)
[2017-11-11 07:58] LABS: #Lymphocytes 2.3 thou/uL (1.20-3.40); #Monocytes 1.8 thou/uL (0.11-0.59); #Neutrophils 8.5 thou/uL (1.40-6.50); %Eosinophils 0.2 % (0.0-10.0); %Neutrophils 67.8 % (42.0-75.0); Hemoglobin 11.2 g/dL (12.0-16.0); Mean Corpuscular HGB CONC 33.3 g/dL (32.0-36.0); Mean Corpuscular Hemoglobin 33.2 pg (27.0-31.0); Mean Corpuscular Volume 99.6 fL (78.0-98.0); Mean Platelet Volume 7.3 fL (7.4-10.4); Platelet Count 253 thou/uL (130-400); RBC Distribution Width 13.1 % (11.5-14.5); Red Blood Cell (RBC) Count 3.38 mill/uL (4.20-5.40); White Blood Cell (WBC) Count 12.5 thou/uL (4.8-10.8)
[2017-11-11 08:16] LABS: ALT (SGPT) 11 U/L (8-55); AST (SGOT) 13 U/L (5-34); Albumin 3.7 g/dL (3.4-4.8); Alkaline Phosphatase 54 U/L (40-150); Anion Gap 12 mmol/L (10-20); BUN (Urea Nitrogen) 19 mg/dL (9.8-20.1); Bilirubin, Total 0.8 mg/dL (0.2-1.2); Calc. Creatinine Clearance 73 mL/min (70-130); Calcium 9.2 mg/dL (7.8-10.44); Carbon Dioxide 25 mmol/L (23-31); Chloride 105 mmol/L (98-107); Estimated GFR-MDRD 62; Globulin 3.5 g/dL (2.4-3.5); Glucose 107 mg/dL (83-110); Potassium 4.1 mmol/L (3.5-5.1); Protein, Total 7.2 g/dL (6.0-8.3); Sodium 138 mmol/L (136-145); Uric Acid 5.3 mg/dL (2.6-6.0)
[2017-11-11] MEDS: cefTRIAXone\\ROCEPHIN 1 GM in Sodium Chloride 0.9% 100 ML IVPB SCH (08:43)
[2017-11-11] MEDS: Indomethacin 25 mg Capsule PO SCH ×2 (08:45→20:35)
[2017-11-11] MEDS: Colchicine 0.6 MG TAB PO SCH ×2 (08:45→20:35)
[2017-11-11] MEDS: Lisinopril 20 MG TAB PO SCH ×2 (08:45→20:37)
[2017-11-11] MEDS: Enoxaparin Sodium 40 MG/0.4 ML SYRINGE SC SCH (08:46)
[2017-11-11] MEDS: hydrALAZINE 25 MG TAB PO SCH ×2 (08:46→20:36)
[2017-11-11] MEDS: Furosemide 40 MG TAB PO SCH (08:46)
[2017-11-11] MEDS: Ipratropium Bromide 0.03% Nasal Inhaler 30 ml Bottle EA NARE SCH ×2 (08:58→20:37)
[2017-11-11] MEDS ORDERED: Non-Formulary Item 1 EACH (Cholecalciferol (Vitamin D3) [Vitamin D3] 1 TAB) PO SCH (09:00)
[2017-11-11] MEDS ORDERED: Ipratropium Bromide 0.03% Nasal Inhaler 30 ml Bottle EA NARE SCH (09:00)
--- NOTE | 2017-11-11 09:25 | HP ---
CODE STATUS: FULL CODE. PRIMARY CARE PHYSICIAN: Dr. Nina Bell. CHIEF COMPLAINT: Chest pain. HISTORY OF PRESENT ILLNESS: This is a 72-year-old female with past medical history of previous strok e, hypertension, came to the hospital after having ongoing chest pain. The chest pain had been prese nt since 1:00 p.m., with no clear triggers, no alleviating factors, patient gets sweaty, uncomfortabl e, patient does not take any pain medication. This is the first time the patient has had this pain. The patient had been in the hospital previously and had been planned to be going for a stress test a fter seeing Dr. Rush as outpatient. The pain is severe, associated with shortness of breath, radia tion is to the left side of the chest. REVIEW OF SYSTEMS: Constitutional: No fever or chills, generalized weakness. Respiratory: No coug h, sputum production, shortness of breath. Cardiovascular: The patient had chest pain as described in the HPI, no palpitation, questionable shortness of breath. Gastrointestinal: No nausea, no vomit ing, no diarrhea, or abdominal pain. Central Nervous System: No dizziness, headache, or feeling lig htheaded. Genitourinary: No burning on urination. Extremities: No leg swelling. All other system s were reviewed and negative except for the findings mentioned above. PAST MEDICAL HISTORY: Positive for previous CVA, hypertension. PAST SURGICAL HISTORY: Positive for tonsillectomy and hysterectomy. PSYCHIATRIC HISTORY: No homicidal ideation. Patient does have a history of anxiety. SOCIAL HISTORY: No smoking, no alcohol, no drugs. FAMILY HISTORY: Reviewed and noncontributory for current presentation. ALLERGIES: CODEINE SULFATE. REPORTED MEDICATIONS: Aspirin; B complex; lisinopril; amlodipine; atorvastatin; Lasix; omega 3-6-9; omeprazole; ipratropium bromide; lorazepam 0.5 mg as needed. PHYSICAL EXAMINATION: VITAL SIGNS: On presentation, blood pressure 183/76 with heart rate 78, respiratory rate was 28, tem perature 98.5, oxygen saturation 98 on room air. GENERAL APPEARANCE: Patient is alert, oriented, in no acute distress. HEENT: Eyes: Normocephalic, conjunctivae. Moist oral mucosa. Anicteric. NECK: No JVD. RESPIRATORY: Bilateral air entry. No rales, no wheezing. Symmetric expansion. CARDIOVASCULAR: Normal rate, regular rhythm. No murmur, no gallop. No edema. The patient has tend erness. ABDOMEN: Soft, normal bowel sounds. MUSCULOSKELETAL: Baseline range of motion and strength. No tenderness. SKIN: Warm and intact. No pallor, no rash, no redness. NEUROLOGIC: Baseline sensorium. No evidence of any new focal weakness. Baseline speech. Cranial n erves seem to be intact. PSYCHIATRIC: Good mood. No anxiety, oriented, optimal judgment. IMAGING: Initial EKG was reviewed and the patient had no specific abnormalities during my evaluation , the patient has had chest pain. We will repeat the EKG, the patient had ST elevation in the inferi or leads and also lateral leads. Chest x-ray was reviewed. The patient has cardiomegaly and pulmona ry vascular congestion. LABORATORY DATA: Reviewed. Patient has white count of 11.4, hemoglobin 11.6, platelet count is norm al. Chemistry was normal except for glucose 113. Troponin was negative x2. ASSESSMENT AND PLAN: 1. The patient was admitted to the hospital due to chest pain, rule out acute coronary syndrome. Du ring evaluation, the patient developed ST elevation with pain that was ongoing. The patient was take n to cardiac catheterization by Dr. Camarillo. Findings suggestive of acute pericarditis, treatment has been placed by Dr. Camarillo, will follow recommendations. 2. Uncontrolled hypertension, likely exacerbated by pain, we will treat underlying condition. We wi ll reconcile home medications. We will adjust treatment as needed. 3. Normocytic anemia. This is chronic, seems to be stable, can be followed as an outpatient. 4. Mild hyperglycemia with a blood sugar of 113, likely due to acute distress, no need for any furth er intervention. 5. Deep venous thrombosis prophylaxis.
--- NOTE | 2017-11-11 11:40 | PDOC.CTH ---
Cardiology Progress Note - Subjective Felling much better. Her chest pain is much better controlled. - Objective Vital Signs Temp Pulse Resp BP BP Pulse Ox 11/11/17 08:46 80 11/11/17 08:40 98.1 F 74 18 144/68 H 2 L 11/11/17 06:36 100 F H 80 20 160/74 H 94 L 11/11/17 05:35 100 F H 76 20 143/65 H 95 11/11/17 04:35 100.1 F H 77 20 134/68 11/11/17 03:15 100.2 F H 76 20 131/71 95 11/11/17 02:45 100.1 F H 72 20 135/65 95 11/11/17 02:15 100.1 F H 80 20 156/76 H 94 L 11/11/17 01:45 100.4 F H 82 20 154/66 H 94 L 11/11/17 01:15 100.8 F H 80 18 151/67 H 93 L 11/11/17 00:50 100.1 F H 80 20 158/70 H 93 L 11/11/17 00:30 100.1 F H 79 20 156/73 H 92 L 11/11/17 00:00 99.9 F H 80 20 93 L 11/10/17 23:47 99.9 F H 80 20 164/75 H 164/75 H 93 L 11/10/17 11/11/17 11/12/17 06:59 06:59 06:59 Intake Total 580 Balance 580 - Physical Examination General/Neuro: alert & oriented x3, NAD Neck: no JVD present Lungs: CTA, unlabored respirations Heart: RRR Abdomen: NT/ND Extremities: other: (no edema) - Telemetry Telemetry Rhythm: NSR - Labs Result Diagrams: 11/11/17 07:27 11/11/17 07:27 Troponin/CKMB CK-MB (CK-2) 0.7 ng/mL (0-6.6) 11/10/17 16:28 Troponin I Less than 0.010 ng/mL (< 0.028) 11/10/17 22:16 - Assessment/Plan 1. Acute pericarditis. 2. Mild CAD 3. Febrile illness. PLAN: - Continue Colchicine and Indomethacine. - PRN Toradol. - Symptoms improved. - UA pending. - Fever work up per primary team - Echo pending.
--- NOTE | 2017-11-11 11:52 | PDOC.PN ---
- Subjective Encounter Start Date: 11/11/17 Encounter Start Time: 08:20 -: old records requested/rev pt has fever, she has chest pain which is much better than yesterday, she denies UTI symptoms, no abdominal pain or diarrhoea, no cough - Objective Resuscitation Status: Resuscitation Status FULL:Full Resuscitation MAR Reviewed: Yes Vital Signs & Weight: Vital Signs (12 hours) Temp Pulse Resp BP Pulse Ox 11/11/17 08:46 80 11/11/17 08:40 98.1 F 74 18 144/68 H 2 L 11/11/17 06:36 100 F H 80 20 160/74 H 94 L 11/11/17 05:35 100 F H 76 20 143/65 H 95 11/11/17 04:35 100.1 F H 77 20 134/68 11/11/17 03:15 100.2 F H 76 20 131/71 95 11/11/17 02:45 100.1 F H 72 20 135/65 95 11/11/17 02:15 100.1 F H 80 20 156/76 H 94 L 11/11/17 01:45 100.4 F H 82 20 154/66 H 94 L 11/11/17 01:15 100.8 F H 80 18 151/67 H 93 L 11/11/17 00:50 100.1 F H 80 20 158/70 H 93 L 11/11/17 00:30 100.1 F H 79 20 156/73 H 92 L 11/11/17 00:00 99.9 F H 80 20 93 L I&O: 11/10/17 11/11/17 11/12/17 06:59 06:59 06:59 Intake Total 580 Balance 580 Result Diagrams: 11/11/17 07:27 11/11/17 07:27 Radiology Reviewed by me: Yes (chest xray) EKG Reviewed by me: Yes (nsr) Phys Exam - Physical Examination Constitutional: NAD HEENT: PERRLA, moist MMs, sclera anicteric Neck: no JVD, supple Respiratory: no wheezing, no rales, no rhonchi Cardiovascular: RRR, no significant murmur, no rub Gastrointestinal: soft, non-tender, no distention, positive bowel sounds Musculoskeletal: no edema, pulses present Neurological: non-focal, normal sensation, moves all 4 limbs Psychiatric: normal affect, A&O x 3 Skin: no rash, normal turgor Dx/Plan (1) Acute febrile illness Code(s): R50.9 - FEVER, UNSPECIFIED Status: Acute (2) Acute pericarditis Code(s): I30.9 - ACUTE PERICARDITIS, UNSPECIFIED Status: Acute (3) Anxiety and depression Code(s): F41.9 - ANXIETY DISORDER, UNSPECIFIED; F32.9 - MAJOR DEPRESSIVE DISORDER, SINGLE EPISODE, UNSPECIFIED Status: Chronic (4) Dyslipidemia Code(s): E78.5 - HYPERLIPIDEMIA, UNSPECIFIED Status: Chronic (5) GERD (gastroesophageal reflux disease) Code(s): K21.9 - GASTRO-ESOPHAGEAL REFLUX DISEASE WITHOUT ESOPHAGITIS Status: Chronic (6) Hypertension Code(s): I10 - ESSENTIAL (PRIMARY) HYPERTENSION Status: Chronic Qualifiers: Comment: (7) Mild coronary artery disease Code(s): I25.10 - ATHSCL HEART DISEASE OF [place] CORONARY ARTERY W/O ANG PCTRS Status: Chronic (8) Obesity (BMI 30.0-34.9) Code(s): E66.9 - OBESITY, UNSPECIFIED Status: Chronic - Plan cont current plan of care, plan discussed w/ family, continue antibiotics * continue colchicine and indomethacin * cardiac cath is negative * source of fever is not clear, ? pericarditis * will send UA and urine culture * follow culture * start empiric rocephin * home medication reconciled * medication reviewed as below * symptomatic treatment * discussed with family bedside. * echo pending Review of Systems - Review of Systems Constitutional: fever. negative: chills, sweats, weakness, malaise, other Eyes: negative: Pain, Vision Change, Conjunctivae Inflammation, Eyelid Inflammation, Redness, Other ENT: negative: Ear Pain, Ear Discharge, Nose Pain, Nose Discharge, Nose Congestion, Mouth Pain, Mouth Swelling, Throat Pain, Throat Swelling, Other Respiratory: negative: Cough, Dry, Shortness of Breath, Hemoptysis, SOB with Excertion, Pleuritic Pain, Sputum, Wheezing Cardiovascular: chest pain. negative: palpitations, orthopnea, paroxysmal nocturnal dyspnea, edema, light headedness, other Gastrointestinal: negative: Nausea, Vomiting, Abdominal Pain, Diarrhea, Constipation, Melena, Hematochezia, Other Genitourinary: negative: Dysuria, Frequency, Incontinence, Hematuria, Retention , Other Musculoskeletal: negative: Neck Pain, Shoulder Pain, Arm Pain, Back Pain, Hand Pain, Leg Pain, Foot Pain, Other Skin: negative: Rash, Lesions, Ronnie, Bruising, Other Neurological: negative: Weakness, Numbness, Incoordination, Change in Speech, Confusion, Seizures, Other - Medications/Allergies Allergies/Adverse Reactions: Allergies Allergy/AdvReac Type Severity Reaction Status Date / Time codeine Allergy Verified 11/10/17 20:03 Medications: Current Medications Acetaminophen (Tylenol) 650 mg PO Q4H PRN PRN Reason: Headache/Fever or Pain Al Hydroxide/Mg Hydroxide (Maalox) 15 ml PO Q4H PRN PRN Reason: Heartburn or Indigestion Amlodipine Besylate (Norvasc) 10 mg PO HS [facility] Artificial Tears (Tears Naturale) 0 drop EA EYE PRN PRN PRN Reason: Dry Eyes Aspirin (Aspirin Chewable) 81 mg PO DAILY [facility] Last Admin: 11/11/17 08:45 Dose: 81 mg Atorvastatin Calcium (Lipitor) 20 mg PO QPM [facility] Atorvastatin Calcium (Lipitor) 10 mg PO HS [facility] Bisacodyl (Dulcolax) 10 mg [place] DAILYPRN PRN PRN Reason: Constipation Calcium Carbonate (Tums) 1,000 mg PO Q4H PRN PRN Reason: Heartburn or Indigestion Cholecalciferol (Vitamin D3) 1,000 units PO DAILY [facility] Last Admin: 11/11/17 08:46 Dose: 1,000 units Colchicine (Colcrys) 0.6 mg PO BID [facility] Last Admin: 11/11/17 08:45 Dose: 0.6 mg Enoxaparin Sodium (Lovenox) 40 mg SC 0900 [facility] Last Admin: 11/11/17 08:46 Dose: 40 mg Furosemide (Lasix) 40 mg PO QAM [facility] Last Admin: 11/11/17 08:46 Dose: 40 mg Guaifenesin (Robitussin Sf) 200 mg PO Q4H PRN PRN Reason: Cough Hydralazine HCl (Apresoline) 50 mg PO BID [facility] Last Admin: 11/11/17 08:46 Dose: 50 mg Hydralazine HCl (Apresoline) 10 mg SLOW IVP Q4H PRN PRN Reason: Systolic BP > 180 Ceftriaxone Sodium 1 gm/ (Sodium Chloride) 100 mls @ 200 mls/hr IVPB Q24HR [facility] Last Admin: 11/11/17 08:43 Dose: 100 mls Indomethacin (Indocin) 25 mg PO BID [facility] Last Admin: 11/11/17 08:45 Dose: 25 mg Ipratropium [place] (Atrovent 0.03%) 0 ml EA NARE BID [facility] Last Admin: 11/11/17 08:58 Dose: 1 spray Ketorolac Tromethamine (Toradol) 30 mg IVP Q6H PRN PRN Reason: Pain Stop: 11/15/17 23:59 Last Admin: 11/11/17 06:31 Dose: 30 mg Labetalol HCl (Normodyne) 20 mg SLOW IVP Q4H PRN PRN Reason: Systolic BP > 180 Lisinopril (Zestril) 20 mg PO BID [facility] Last Admin: 11/11/17 08:45 Dose: 20 mg Loperamide HCl (Imodium) 2 mg PO PRN PRN PRN Reason: Diarrhea/Loose Stools Loratadine (Claritin) 10 mg PO DAILYPRN PRN PRN Reason: Sinus Symptoms Lorazepam (Ativan) 1 mg PO Q4H PRN PRN Reason: Anxiety/Agitation Magnesium Hydroxide (Milk Of Magnesium) 30 ml PO DAILYPRN PRN PRN Reason: Constipation Metoclopramide HCl (Reglan) 5 mg IVP Q4H PRN PRN Reason: Nausea Mineral Oil/White Petrolatum (Eucerin Cream) 0 gm TOP BIDPRN PRN PRN Reason: Dry Skin Ondansetron HCl (Zofran) 4 mg IVP Q6H PRN PRN Reason: Nausea/Vomiting Ondansetron HCl (Zofran Odt) 4 mg PO Q6H PRN PRN Reason: Nausea/Vomiting Pantoprazole Sodium (Protonix) 40 mg PO DAILY [facility] Last Admin: 11/11/17 08:45 Dose: 40 mg Phenol (Chloraseptic [place] 180 Ml Bot) 0 ml PO PRN PRN PRN Reason: Sore Throat Senna (Senokot) 2 tab PO HSPRN PRN PRN Reason: Constipation Sodium Chloride ([place] Nasal [place] 0.65%) 0 ml EA NARE QIDPRN PRN PRN Reason: Nasal Congestion Sodium Chloride (Flush - Normal Saline) 10 ml IVF Q12HR [facility] Last Admin: 11/11/17 08:59 Dose: Not Given Sodium Chloride (Flush - Normal Saline) 10 ml IVF PRN PRN PRN Reason: Saline Flush Zolpidem Tartrate (Ambien) 5 mg PO HSPRN PRN PRN Reason: Insomnia
[2017-11-11] MEDS: Atorvastatin Calcium 10 MG TAB PO SCH (20:35)
[2017-11-11] MEDS: Amlodipine 10 MG TAB PO SCH (20:35)
[2017-11-11] MEDS: Acetaminophen 325 MG TAB PO PRN (20:36)
[2017-11-11] MEDS ORDERED: Atorvastatin Calcium 20 MG TAB PO SCH (21:00)
[2017-11-12 06:27] LABS: Anion Gap 13 mmol/L (10-20); BUN (Urea Nitrogen) 18 mg/dL (9.8-20.1); Calc. Creatinine Clearance 73 mL/min (70-130); Calcium 9.3 mg/dL (7.8-10.44); Carbon Dioxide 24 mmol/L (23-31); Chloride 106 mmol/L (98-107); Estimated GFR-MDRD 66; Glucose 92 mg/dL (83-110); Potassium 4.3 mmol/L (3.5-5.1); Sodium 139 mmol/L (136-145)
[2017-11-12 06:33] LABS: Bilirubin Negative (Negative); Blood, Urine Negative (Negative); Clarity CLEAR (Clear); Glucose, Urine (Dipstick) Negative (Negative); Leukocyte Small (Negative); Nitrite Negative (Negative); Protein, Urine (Dipstick) Negative (Neg-Trace); Specific Gravity, Urine 1.021 (1.002-1.036); Urobilinogen 0.2 mg/dL (0.2-1.0); pH, Urine 5.5 (5.0-9.0)
[2017-11-12 06:35] LABS: #Eosinphils 0.2 thou/uL (0.0-0.7); #Lymphocytes 2.7 thou/uL (1.20-3.40); #Monocytes 1.5 thou/uL (0.11-0.59); #Neutrophils 6.6 thou/uL (1.40-6.50); %Basophils 0.3 % (0.0-1.0); %Eosinophils 1.9 % (0.0-10.0); %Lymphocytes 24.2 % (21.0-51.0); %Monocytes 13.2 % (0.0-10.0); %Neutrophils 60.4 % (42.0-75.0); Hemoglobin 11.4 g/dL (12.0-16.0); Mean Corpuscular HGB CONC 31.6 g/dL (32.0-36.0); Mean Corpuscular Hemoglobin 32.4 pg (27.0-31.0); Platelet Count 241 thou/uL (130-400); Red Blood Cell (RBC) Count 3.52 mill/uL (4.20-5.40)
[2017-11-12 06:36] LABS: Bacteria/HPF None Seen HPF (None Seen); Hyaline Casts/LPF 0-3 HYALINE CAST LPF (0-3 Hyaline); Pathc Cast-AUWi Flag 0.29 (0-2.49); RBC/HPF 0-3 HPF (0-3); Squamous Epithelial 0-3 HPF (0-3)
[2017-11-12] MEDS: cefTRIAXone\\ROCEPHIN 1 GM in Sodium Chloride 0.9% 100 ML IVPB SCH (08:58)
[2017-11-12] MEDS: Enoxaparin Sodium 40 MG/0.4 ML SYRINGE SC SCH (08:59)
[2017-11-12] MEDS: Lisinopril 20 MG TAB PO SCH ×2 (08:59→20:27)
[2017-11-12] MEDS: Colchicine 0.6 MG TAB PO SCH ×2 (08:59→20:28)
[2017-11-12] MEDS: hydrALAZINE 25 MG TAB PO SCH ×3 (09:00→20:27)
[2017-11-12] MEDS: Furosemide 40 MG TAB PO SCH (09:00)
[2017-11-12] MEDS: Indomethacin 25 mg Capsule PO SCH ×2 (09:00→20:28)
[2017-11-12] MEDS: Ipratropium Bromide 0.03% Nasal Inhaler 30 ml Bottle EA NARE SCH ×2 (09:01→20:28)
--- NOTE | 2017-11-12 12:15 | PDOC.PN ---
- Subjective Encounter Start Date: 11/12/17 Encounter Start Time: 09:00 last night she had high grade fever, she has less intense pain in chest, no UTI symptoms - Objective Resuscitation Status: Resuscitation Status FULL:Full Resuscitation MAR Reviewed: Yes Vital Signs & Weight: Vital Signs (12 hours) Temp Pulse Resp BP BP Pulse Ox 11/12/17 09:00 71 11/12/17 08:55 99.5 F 72 18 182/79 H 99 11/12/17 08:50 99.5 F 72 18 11/12/17 03:59 98.1 F 71 17 144/67 H 94 L Weight Weight 207 lb 9.6 oz I&O: 11/11/17 11/12/17 11/13/17 06:59 06:59 06:59 Intake Total 580 1320 Output Total 800 Balance 580 520 Result Diagrams: 11/12/17 04:52 11/12/17 04:52 EKG Reviewed by me: Yes (nsr) Phys Exam - Physical Examination Constitutional: NAD HEENT: PERRLA, moist MMs, sclera anicteric Neck: no JVD, supple Respiratory: no wheezing, no rales, no rhonchi Cardiovascular: RRR, no significant murmur, no rub Gastrointestinal: soft, non-tender, no distention, positive bowel sounds Musculoskeletal: no edema, pulses present Neurological: non-focal, normal sensation, moves all 4 limbs Lymphatic: no nodes Psychiatric: normal affect, A&O x 3 Skin: no rash, normal turgor Dx/Plan (1) Acute febrile illness Code(s): R50.9 - FEVER, UNSPECIFIED Status: Acute Comment: suspecting from pericarditis ? UTI (2) Acute pericarditis Code(s): I30.9 - ACUTE PERICARDITIS, UNSPECIFIED Status: Acute Qualifiers: Infectious pericarditis etiology: unspecified (3) Anxiety and depression Code(s): F41.9 - ANXIETY DISORDER, UNSPECIFIED; F32.9 - MAJOR DEPRESSIVE DISORDER, SINGLE EPISODE, UNSPECIFIED Status: Chronic (4) Dyslipidemia Code(s): E78.5 - HYPERLIPIDEMIA, UNSPECIFIED Status: Chronic (5) GERD (gastroesophageal reflux disease) Code(s): K21.9 - GASTRO-ESOPHAGEAL REFLUX DISEASE WITHOUT ESOPHAGITIS Status: Chronic (6) Hypertension Code(s): I10 - ESSENTIAL (PRIMARY) HYPERTENSION Status: Chronic Qualifiers: Comment: (7) Mild coronary artery disease Code(s): I25.10 - ATHSCL HEART DISEASE OF [place] CORONARY ARTERY W/O ANG PCTRS Status: Chronic (8) Obesity (BMI 30.0-34.9) Code(s): E66.9 - OBESITY, UNSPECIFIED Status: Chronic - Plan cont current plan of care, plan discussed w/ family, continue antibiotics * continue rocephin for presumed UTI * continue colchicine and indomethacin for pericarditis * medication reviewed as below * symptomatic treatment * echo pending * discussed with son bedside * if afebrile for 24 hours, then we will consider discharge * overall pt is improving. Review of Systems - Review of Systems Constitutional: fever. negative: chills, sweats, weakness, malaise, other Eyes: negative: Pain, Vision Change, Conjunctivae Inflammation, Eyelid Inflammation, Redness, Other ENT: negative: Ear Pain, Ear Discharge, Nose Pain, Nose Discharge, Nose Congestion, Mouth Pain, Mouth Swelling, Throat Pain, Throat Swelling, Other Respiratory: negative: Cough, Dry, Shortness of Breath, Hemoptysis, SOB with Excertion, Pleuritic Pain, Sputum, Wheezing Cardiovascular: chest pain. negative: palpitations, orthopnea, paroxysmal nocturnal dyspnea, edema, light headedness, other Gastrointestinal: negative: Nausea, Vomiting, Abdominal Pain, Diarrhea, Constipation, Melena, Hematochezia, Other Genitourinary: negative: Dysuria, Frequency, Incontinence, Hematuria, Retention , Other Musculoskeletal: negative: Neck Pain, Shoulder Pain, Arm Pain, Back Pain, Hand Pain, Leg Pain, Foot Pain, Other Skin: negative: Rash, Lesions, Ronnie, Bruising, Other - Medications/Allergies Allergies/Adverse Reactions: Allergies Allergy/AdvReac Type Severity Reaction Status Date / Time codeine Allergy Verified 11/10/17 20:03 Medications: Current Medications Acetaminophen (Tylenol) 650 mg PO Q4H PRN PRN Reason: Headache/Fever or Pain Last Admin: 11/11/17 20:36 Dose: 650 mg Al Hydroxide/Mg Hydroxide (Maalox) 15 ml PO Q4H PRN PRN Reason: Heartburn or Indigestion Amlodipine Besylate (Norvasc) 10 mg PO HS [facility] Last Admin: 11/11/17 20:35 Dose: 10 mg Artificial Tears (Tears Naturale) 0 drop EA EYE PRN PRN PRN Reason: Dry Eyes Aspirin (Aspirin Chewable) 81 mg PO DAILY [facility] Last Admin: 11/12/17 09:00 Dose: 81 mg Atorvastatin Calcium (Lipitor) 10 mg PO HS [facility] Last Admin: 11/11/17 20:35 Dose: 10 mg Bisacodyl (Dulcolax) 10 mg [place] DAILYPRN PRN PRN Reason: Constipation Calcium Carbonate (Tums) 1,000 mg PO Q4H PRN PRN Reason: Heartburn or Indigestion Cholecalciferol (Vitamin D3) 1,000 units PO DAILY [facility] Last Admin: 11/12/17 09:00 Dose: 1,000 units Colchicine (Colcrys) 0.6 mg PO BID [facility] Last Admin: 11/12/17 08:59 Dose: 0.6 mg Enoxaparin Sodium (Lovenox) 40 mg SC 0900 [facility] Last Admin: 11/12/17 08:59 Dose: 40 mg Furosemide (Lasix) 40 mg PO QAM [facility] Last Admin: 11/12/17 09:00 Dose: 40 mg Guaifenesin (Robitussin Sf) 200 mg PO Q4H PRN PRN Reason: Cough Hydralazine HCl (Apresoline) 50 mg PO BID [facility] Last Admin: 11/12/17 09:00 Dose: 50 mg Hydralazine HCl (Apresoline) 10 mg SLOW IVP Q4H PRN PRN Reason: Systolic BP > 180 Ceftriaxone Sodium 1 gm/ (Sodium Chloride) 100 mls @ 200 mls/hr IVPB Q24HR [facility] Last Admin: 11/12/17 08:58 Dose: 100 mls Indomethacin (Indocin) 25 mg PO BID [facility] Last Admin: 11/12/17 09:00 Dose: 25 mg Ipratropium [place] (Atrovent 0.03%) 0 ml EA NARE BID [facility] Last Admin: 11/12/17 09:01 Dose: 1 spray Ketorolac Tromethamine (Toradol) 30 mg IVP Q6H PRN PRN Reason: Pain Stop: 11/15/17 23:59 Last Admin: 11/11/17 06:31 Dose: 30 mg Labetalol HCl (Normodyne) 20 mg SLOW IVP Q4H PRN PRN Reason: Systolic BP > 180 Lisinopril (Zestril) 20 mg PO BID [facility] Last Admin: 11/12/17 08:59 Dose: 20 mg Loperamide HCl (Imodium) 2 mg PO PRN PRN PRN Reason: Diarrhea/Loose Stools Loratadine (Claritin) 10 mg PO DAILYPRN PRN PRN Reason: Sinus Symptoms Lorazepam (Ativan) 1 mg PO Q4H PRN PRN Reason: Anxiety/Agitation Magnesium Hydroxide (Milk Of Magnesium) 30 ml PO DAILYPRN PRN PRN Reason: Constipation Metoclopramide HCl (Reglan) 5 mg IVP Q4H PRN PRN Reason: Nausea Mineral Oil/White Petrolatum (Eucerin Cream) 0 gm TOP BIDPRN PRN PRN Reason: Dry Skin Ondansetron HCl (Zofran) 4 mg IVP Q6H PRN PRN Reason: Nausea/Vomiting Ondansetron HCl (Zofran Odt) 4 mg PO Q6H PRN PRN Reason: Nausea/Vomiting Pantoprazole Sodium (Protonix) 40 mg PO DAILY [facility] Last Admin: 11/12/17 09:00 Dose: 40 mg Phenol (Chloraseptic [place] 180 Ml Bot) 0 ml PO PRN PRN PRN Reason: Sore Throat Senna (Senokot) 2 tab PO HSPRN PRN PRN Reason: Constipation Sodium Chloride ([place] Nasal [place] 0.65%) 0 ml EA NARE QIDPRN PRN PRN Reason: Nasal Congestion Sodium Chloride (Flush - Normal Saline) 10 ml IVF Q12HR [facility] Last Admin: 11/12/17 09:01 Dose: 10 ml Sodium Chloride (Flush - Normal Saline) 10 ml IVF PRN PRN PRN Reason: Saline Flush Zolpidem Tartrate (Ambien) 5 mg PO HSPRN PRN PRN Reason: Insomnia
[2017-11-12] MEDS: Acetaminophen 325 MG TAB PO PRN (12:35)
--- NOTE | 2017-11-12 13:35 | PQF ---
CLINICAL DOCUMENTATION IMPROVEMENT CLARIFICATION FORM: ICD-10 Updated PLEASE DO AN ADDENDUM TO THE PROGRESS NOTE WITH ANY DOCUMENTATION UPDATES OR ADDITIONS AND CARRY THROUGH TO DC SUMMARY. THANK YOU. DATE: 11/12/17 ATTN: DR. FARIAS Please exercise your independent, professional judgment in responding to the clarification form. Clinical indicators are provided on the bottom of this form for your review Please check appropriate box(s) to clarify if the following diagnosis has been ruled in or ruled out: NSTEMI [ ] Ruled in diagnosis [ ] Continue to treat [ ] Resolved [ x ] Ruled out diagnosis [ ] Cannot rule out diagnosis [ ] Other diagnosis [ ] Unable to determine In addition, please specify: Present on Admission (POA): [ ] Yes [ x ] No [ ] Unable to determine For continuity of documentation, please document condition throughout progress notes and discharge summary. Thank You. CLINICAL INDICATORS - SIGNS / SYMPTOMS / LABS H&P: "DURING EVALUATION, THE PATIENT DEVELOPED ST ELEVATION WITH PAIN THAT WAS ONGOING." CONSULTATION NOTE 11/10: "INFERIOR ST ELEVATION MYOCARDIAL INFARCTION" RISKS: HYPERTENSION PERICARDITIS TREATMENT: CARDIAC MONITORING CARDIOLOGY CONSULT SERIAL LABS CARDIAC CATHETERIZATION ASPIRIN LOVENOX (This form is maintained as a part of the permanent medical record) [employer] 2015 [employer]. All Rights Reserved [email or web address] Office: [phone] [email or web address]
--- NOTE | 2017-11-12 14:06 | PDOC.CTH ---
<Carlyn Vela - Last Filed: 11/12/17 14:07> Cardiology Progress Note - Subjective The pt seen and examined. No overnight events. No cardiac complaints. She complained of dizziness when she gets up; however, per daughter, she has the symptoms quit sometimes. The pt was instructed to get up very slow. - Objective Vital Signs Temp Pulse Resp BP BP Pulse Ox 11/12/17 13:15 168/77 H 11/12/17 12:35 71 11/12/17 12:30 99.7 F H 73 18 190/84 H 93 L 11/12/17 09:00 71 11/12/17 08:55 99.5 F 72 18 182/79 H 99 11/12/17 08:50 99.5 F 72 18 11/12/17 03:59 98.1 F 71 17 144/67 H 94 L Weight 207 lb 9.6 oz 11/11/17 11/12/17 11/13/17 06:59 06:59 06:59 Intake Total 580 1320 Output Total 800 Balance 580 520 - Physical Examination General/Neuro: alert & oriented x3 Neck: no JVD present Lungs: CTA Heart: RRR Abdomen: soft Extremities: other: (No edema) - Telemetry Telemetry Rhythm: SR, PVCs. - Labs Result Diagrams: 11/12/17 04:52 11/12/17 04:52 Troponin/CKMB CK-MB (CK-2) 0.7 ng/mL (0-6.6) 11/10/17 16:28 Troponin I Less than 0.010 ng/mL (< 0.028) 11/10/17 22:16 - Assessment/Plan 1. Acute pericarditis - on Colchicine and Indomethacine; cont. to monitor 2. HTN - Increase Hydoralzine 50mg from BID to TID. cont. to monitor 3. Mild CAD - stable with Bblocker, DHRUV, ASA and Statin; cont. to monitor 4. Febrile illness possible 2/2 UTI - UA result is pending at this time 5. Hyperlipidemia - on Statin 6. anxiety and depression - stable MAR reviewed Review of Systems - Review of Systems Constitutional: reports: see HPI EENTM: reports: no symptoms reported Respiratory: reports: no symptoms reported Cardiac (ROS): reports: no symptoms reported ABD/GI: reports: no symptoms reported : reports: no symptoms reported Musculoskeletal: reports: no symptoms reported Skin: reports: no symptoms reported <Kristine Armenta - Last Filed: 11/12/17 22:57> Cardiology Progress Note - Objective Vital Signs Temp Pulse Resp BP BP BP Pulse Ox 11/12/17 20:27 80 162/76 H 11/12/17 20:26 80 162/76 H 11/12/17 20:00 98.0 F 80 20 162/76 H 94 L 11/12/17 15:44 71 11/12/17 15:40 98.9 F 71 18 143/72 H 93 L 11/12/17 13:15 168/77 H 11/12/17 12:35 71 11/12/17 12:30 99.7 F H 73 18 190/84 H 93 L Weight 207 lb 9.6 oz 11/11/17 11/12/17 11/13/17 06:59 06:59 06:59 Intake Total 580 1320 1200 Output Total 800 250 Balance 580 520 950 - Labs Result Diagrams: 11/12/17 04:52 11/12/17 04:52 Troponin/CKMB CK-MB (CK-2) 0.7 ng/mL (0-6.6) 11/10/17 16:28 Troponin I Less than 0.010 ng/mL (< 0.028) 11/10/17 22:16 - Assessment/Plan Pt. seen and eval. by me. I agree with the A/P by the MARKETING MANAGER. We have discused the plan. The pt. feels breanna than yesterday. Decreased chest pain. Chest clear. RRR. I do not hear a friction rub at this time.
[2017-11-12] MEDS: Amlodipine 10 MG TAB PO SCH (20:26)
[2017-11-12] MEDS: Atorvastatin Calcium 10 MG TAB PO SCH (20:28)
[2017-11-13 07:43] LABS: #Eosinphils 0.2 thou/uL (0.0-0.7); #Lymphocytes 1.6 thou/uL (1.20-3.40); #Monocytes 1.1 thou/uL (0.11-0.59); #Neutrophils 6.7 thou/uL (1.40-6.50); %Basophils 0.2 % (0.0-1.0); %Eosinophils 1.7 % (0.0-10.0); %Lymphocytes 16.9 % (21.0-51.0); %Monocytes 11.2 % (0.0-10.0); Hemoglobin 10.6 g/dL (12.0-16.0); Mean Corpuscular HGB CONC 32.8 g/dL (32.0-36.0); Mean Corpuscular Hemoglobin 32.6 pg (27.0-31.0); Mean Corpuscular Volume 99.3 fL (78.0-98.0); Mean Platelet Volume 7.4 fL (7.4-10.4); Platelet Count 275 thou/uL (130-400); RBC Distribution Width 12.9 % (11.5-14.5); Red Blood Cell (RBC) Count 3.25 mill/uL (4.20-5.40); White Blood Cell (WBC) Count 9.6 thou/uL (4.8-10.8)
--- NOTE | 2017-11-13 08:39 | PDOC.CTH ---
Cardiology Progress Note - Subjective Doing well, had minimal chest discomfort overnight. Out of bed this morning, felt "winded" taking a shower. Resolved now. Denies N/V/D. Right groin site post-cath doing well, denies any pain or discomfort to site. Denies dizziness , lightheadedness. No overnight events. - ROS chest pain, shortness of breath - Objective Vital Signs Temp Pulse Resp BP BP Pulse Ox 11/13/17 04:00 98.8 F 78 18 154/67 H 92 L 11/12/17 23:25 98.8 F 78 19 146/67 H 92 L Weight 206 lb 9.6 oz 11/12/17 11/13/17 11/14/17 06:59 06:59 06:59 Intake Total 1320 1600 Output Total 800 500 Balance 520 1100 - Physical Examination General/Neuro: alert & oriented x3 Neck: no JVD present Lungs: CTA, unlabored respirations Heart: RRR, other: (no friction rub) Abdomen: NT/ND, soft - Telemetry Telemetry Rhythm: SR 70s - Labs Result Diagrams: 11/13/17 07:26 11/12/17 04:52 Troponin/CKMB CK-MB (CK-2) 0.7 ng/mL (0-6.6) 11/10/17 16:28 Troponin I Less than 0.010 ng/mL (< 0.028) 11/10/17 22:16 - Assessment/Plan 1. Acute Pericarditis - on Colchicine and Indomethacin, pain improved. No N/V/D 2. HTN - Improving on increased frequency hydralazine 3. Mild CAD -no anginal symptoms. Continue ACEi, ASA and Statin 4. Febrile illness-afebrile for last 24 hours. UA normal. 5. Hyperlipidemia - continue statin. 6. anxiety and depression - stable Okay to discharge home, f/u with in 7 to 10 days.
[2017-11-13] MEDS: Colchicine 0.6 MG TAB PO SCH (09:31)
[2017-11-13] MEDS: hydrALAZINE 25 MG TAB PO SCH (09:31)
[2017-11-13] MEDS: Indomethacin 25 mg Capsule PO SCH (09:31)
[2017-11-13] MEDS: Furosemide 40 MG TAB PO SCH (09:31)
[2017-11-13] MEDS: cefTRIAXone\\ROCEPHIN 1 GM in Sodium Chloride 0.9% 100 ML IVPB SCH (09:32)
[2017-11-13] MEDS: Lisinopril 20 MG TAB PO SCH (09:32)
[2017-11-13] MEDS: Enoxaparin Sodium 40 MG/0.4 ML SYRINGE SC SCH (09:33)
[2017-11-13] MEDS: Ipratropium Bromide 0.03% Nasal Inhaler 30 ml Bottle EA NARE SCH (09:37)
[2017-11-13 09:43] VITALS: BP 162/76
--- NOTE | 2017-11-13 10:43 | DIS ---
DATE OF ADMISSION: 11/10/2017 DATE OF DISCHARGE: 11/13/2017 PRIMARY CARE PHYSICIAN: Nina Bell M.D. DISCHARGE DISPOSITION: Home. PRIMARY DISCHARGE DIAGNOSES: 1. Acute pericarditis. 2. Acute febrile illness, suspected from either pericarditis/urinary tract infection. SECONDARY DISCHARGE DIAGNOSES: Obesity with body mass index 33, mild coronary artery disease, hypertension, gastroesophageal reflux disease, dyslipidemia, anxiety and depression. PRIMARY PROCEDURE/OPERATION: Cardiac catheterization was performed by Dr. Camarillo which was normal. RADIOLOGICAL INVESTIGATION: Chest x-ray was normal. Echocardiography showed diastolic dysfunction, moderate pericardial effusion. SIGNIFICANT LABORATORY DATA: WBC 9.6, hemoglobin 10.6, platelet 275. Sodium 139, potassium 4.3, BUN 18, creatinine 1.0 and calcium 9.3. LFT normal. CRP 13.8. BNP 119.6, LDL 44, TSH 1.33. Urinalysis: Leukocyte esterase small. Blood culture negative. Urine culture negative. DISCHARGE MEDICATIONS: Amlodipine 10 mg p.o. daily, aspirin 81 mg p.o. daily, Lipitor 10 mg p.o. at bedtime, B complex 1 tablet p.o. daily, cetirizine 10 mg daily, vitamin D3 1000 unit p.o. daily, Lasix 40 mg p.o. daily, hydralazine 50 mg p.o. t.i.d., indomethacin 25 mg p.o. b.i.d., colchicine 0.6 mg p.o. b.i.d. for 15 days, Atrovent nasal spray b.i.d., lisinopril 20 mg p.o. b.i.d., lorazepam 0.5 mg q.4 hourly p.r.n., multivitamin 1 tablet p.o. daily, omega fish oil one tablet daily, omeprazole 20 mg p.o. daily. CONTRAINDICATIONS: None. CODE STATUS: FULL CODE. INPATIENT ORAL HYGIENIST: Dr. Camarillo was following while in hospital. ALLERGIES: CODEINE. TEST RESULTS PENDING ON DISCHARGE: . DISCHARGE PLAN: Post hospital, the patient is instructed to follow up with Dr. Camarillo in 2 weeks and primary care physician in 1 week. HOSPITAL COURSE: A 72-year-old female who was admitted by Dr. Lei. Please see his H&P for further detail. In the emergency room, patient had acute chest pain and suspected for STEMI and that is why patient was taken for cardiac catheterization lab. Patient was found with mild coronary artery disease with normal EF. Patient's chest pain description was consistent with pleuritic component and that is why we suspected acute pericarditis. After negative cardiac catheterization, patient was treated with colchicine and indomethacin. While in hospital, she was having fever and that is why we started on Rocephin as well and we suspected UTI. Patient was given 3 days of Rocephin therapy for her asymptomatic UTI. As patient did not have any UTI symptoms and urine culture remain negative, we did not prescribe oral antibiotic therapy upon discharge. At this point, our main suspicious for her fever and presentation is acute pericarditis. We sent autoimmune testing today, official report will be pending. At this point, we do not have any clearcut etiology for her acute pericarditis. Cardiology will follow up with the patient as an outpatient basis. Patient clinically responded to colchicine and indomethacin, which we will continue upon discharge as well. Primary care physician and supply chain design manager will determine end of therapy. By the time of discharge, she was afebrile for more than 24 hours. She was hemodynamically stable, tolerating p.o. well and ambulatory. Today, the patient is seen and examined at bedside today. REVIEW OF SYSTEMS: Negative. PHYSICAL EXAMINATION: VITAL SIGNS: Currently, temperature 98.6, pulse 82, blood pressure 147/68, weight 206 pounds. GENERAL: The patient is currently alert, awake, no obvious acute distress. HEAD: Normocephalic, atraumatic. EYES: Pupils round, reactive to light. Extraocular muscle intact. ENT: Oropharynx within normal limits. Moist mucous membranes, no oral lesion, no pharyngeal erythema, no exudate. NECK: Supple, no JVD, no thyromegaly, no carotid bruit. LUNGS: Clear to auscultation without any rhonchi or rales. CARDIAC: S1, S2 regular without any murmur. ABDOMEN: Soft and benign. EXTREMITIES: No edema. NEUROLOGIC: Nonfocal examination. The patient is medically stable for discharge today. Total time spent on discharge day 32 minutes MTDD
[2017-11-13 11:13] VITALS: TEMP 98.2
[2017-11-13 16:47] LABS: ANA Symphony (Qualitative) Negative (Negative); dsDNA IgG Antibody 1.1 IU/mL (<10 Negative)
== END 2017-11-13 12:37 | disposition home or self-care (01) | DRG 287 ==
LOC: SCSER 16:04 → 2SW 17:24 → OBSVTOIN 22:54 → 2NO 11-11 00:07
PROVIDERS: ADMIT Family Medicine; ATTEND Family Medicine
PROC: 4A023N7 Measurement of Cardiac Sampling and Pressure, Left Heart, Percutaneous Approach (ICD-10-PCS; principal; 2017-11-10)
PROC: B2111ZZ Fluoroscopy of Multiple Coronary Arteries using Low Osmolar Contrast (ICD-10-PCS; 2017-11-10)
DX: I30.9 Acute pericarditis, unspecified (principal); N39.0 Urinary tract infection, site not specified; I10 Essential (primary) hypertension; Z86.73 Personal history of transient ischemic attack (TIA), and cerebral infarction without residual deficits; D64.9 Anemia, unspecified; R73.9 Hyperglycemia, unspecified; E66.9 Obesity, unspecified; E78.5 Hyperlipidemia, unspecified; B19.20 Unspecified viral hepatitis C without hepatic coma; I25.10 Atherosclerotic heart disease of native coronary artery without angina pectoris; K21.9 Gastro-esophageal reflux disease without esophagitis; F41.8 Other specified anxiety disorders; Z68.33 Body mass index [BMI] 33.0-33.9, adult; Z79.82 Long term (current) use of aspirin
CPT/HCPCS: 36415; 71045; 80048; 80053; 80061; 81001; 82553; 83880; 84443; 84484; 84550; 85025; 86038; 86140; 86225; 87040; 87086; 93005; 93010; 93306; 93458; 96374; 96375; 99152; A4216; C1760; C1769; J0360; J0696; J1644; J1650; J1885; J2001; J2060; J2250; J2270; J3010; J7050

== ENCOUNTER 2017-11-17 07:28 | Emergency (ER) | payer MEDICARE, OTHER ==
[2017-11-17] MEDS ORDERED: Nitroglycerin 2% Ointment 1 INCH/1 GM Packet ONE (08:00)
[2017-11-17 08:09] LABS: #Eosinphils 0.2 thou/uL (0.0-0.7); #Lymphocytes 2.4 thou/uL (1.20-3.40); #Monocytes 1.2 thou/uL (0.11-0.59); %Basophils 0.2 % (0.0-1.0); %Eosinophils 1.7 % (0.0-10.0); %Lymphocytes 24.6 % (21.0-51.0); %Monocytes 11.8 % (0.0-10.0); %Neutrophils 61.7 % (42.0-75.0); Hemoglobin 10.9 g/dL (12.0-16.0); Mean Corpuscular Hemoglobin 32.1 pg (27.0-31.0); Mean Platelet Volume 6.6 fL (7.4-10.4); Platelet Count 381 thou/uL (130-400); Red Blood Cell (RBC) Count 3.39 mill/uL (4.20-5.40); White Blood Cell (WBC) Count 9.8 thou/uL (4.8-10.8)
[2017-11-17 08:28] LABS: ALT (SGPT) 26 U/L (8-55); AST (SGOT) 27 U/L (5-34); Albumin 3.9 g/dL (3.4-4.8); Alkaline Phosphatase 67 U/L (40-150); Anion Gap 13 mmol/L (10-20); BUN (Urea Nitrogen) 20 mg/dL (9.8-20.1); Bilirubin, Total 0.5 mg/dL (0.2-1.2); CK (CPK) 50 U/L (29-168); Calc. Creatinine Clearance 0 mL/min (70-130); Calcium 9.7 mg/dL (7.8-10.44); Carbon Dioxide 26 mmol/L (23-31); Chloride 103 mmol/L (98-107); Estimated GFR-MDRD 65; Globulin 4.1 g/dL (2.4-3.5); Glucose 100 mg/dL (83-110); Lipase 72 U/L (8-78); Sodium 138 mmol/L (136-145)
[2017-11-17 08:32] LABS: CKMB 0.8 ng/mL (0-6.6); Troponin I Less than 0.010 ng/mL (< 0.028)
--- NOTE | 2017-11-17 08:34 | RAD ---
PORTABLE CHEST: Date: 11/17/17 HISTORY: Chest pain, heaviness, and shortness of breath. COMPARISON: 11/10/17 study. FINDINGS: Heart size is enlarged. There are atherosclerotic changes of the aorta. Lungs are clear of any infilt rates. No signs of failure. IMPRESSION: Marked cardiomegaly. POS: LEONARDO
== END 2017-11-17 09:37 | disposition home or self-care (01) ==
LOC: ERS 07:28
DX: I31.9 Disease of pericardium, unspecified (principal); I10 Essential (primary) hypertension; Z86.73 Personal history of transient ischemic attack (TIA), and cerebral infarction without residual deficits
CPT/HCPCS: 36415; 71045; 80053; 82550; 82553; 83690; 83880; 84484; 85025; 93005; 94760